=== PATIENT | female | born 1935 | race Caucasian/White ===

== ENCOUNTER 2016-09-06 06:07 | Emergency (ER) | payer OTHER ==
[~2016-09-06] VITALS: Ht 165.1 cm; Wt 85.9 kg
[~2016-09-06 06:07] MED LIST: ADULT LOW DOSE81 M1 PO; ALEVE220 M1 PO; B COMPLETE1 EACH PO; BENICAR20 MG PO; BENICAR40 MG PO; CALCIUM 500 +1 EAC5 PO; CELEBREX200 MG PO; GLUCOSAMINE CH1 EAC3 PO; LEVAQUIN500 MG PO; TOPROL XL25 MG PO
[2016-09-06] MEDS ORDERED: VOLTAREN50 MG PO (06:36)
[2016-09-06] MEDS ORDERED: HYDROCHLOROTHIA25 MG PO (06:37)
[2016-09-06] MEDS ORDERED: AMOX TR-K CLV1 EAC4 PO (06:39)
[2016-09-06] MEDS ORDERED: BENZONATATE200 MG PO (06:43)
[2016-09-06 07:10] LABS: HEMATOCRIT 42.5 % (36.0-46.0); MCH 31.1 PG (29.0-34.0); MCHC 33.2 G/DL (30.0-36.0); MCV 93.8 FL (83-99); MEAN PLAT.VOLUME 9.8 uM^3 (9.5-12.4); PLATELET COUNT 202 K/uL (156-360); RBC DIS.WIDTH-CV 13.8 % (11.8-14.6); RBC DIS.WIDTH-SD 47.3 % (39-53); RED BLOOD COUNT 4.53 M/uL (3.80-5.20); WHITE BLOOD COUNT 5.8 K/uL (4.1-10.2)
[2016-09-06 07:25] LABS: ANION GAP 8 MEQ/L (2-14); CHLORIDE 104 MEQ/L (99-109); POTASSIUM 3.8 MEQ/L (3.7-5.4); SAMPLE HEMOLYSIS CHECK 0; SAMPLE ICTERIC CHECK 0; SAMPLE LIPEMIA CHECK 0; SODIUM 138 MEQ/L (136-147)
[2016-09-06 07:31] LABS: GFR ESTIMATE (CALCULATED) > 59 mL/min/; GLUCOSE 93 mg/dL (70-99); UREA NITROGEN (BUN) 16 mg/dL (9-23)
[2016-09-06 08:04] VITALS: BP 156/86
== END 2016-09-06 08:04 | disposition home or self-care (01) ==
LOC: EME 06:07
PROVIDERS: Emergency Medicine
DX: J20.9 Acute bronchitis, unspecified (principal); I10 Essential (primary) hypertension
CPT/HCPCS: 71020; 80048; 83605; 85027; 99281; 99283